=== PATIENT | female | born 1955 | race Caucasian/White ===

== ENCOUNTER 2017-05-12 07:18 | Day surgery (SDC) | payer OTHER ==
[2017-05-09 10:35] VITALS: BMI 22.6
[~2017-05-12 07:18] MED LIST: LACTATED RINGERS 1,000 ML IV SCH
[2017-05-12 07:38] VITALS: RESP 16; TEMP 97.3
[2017-05-12] MEDS ORDERED: LIDOCAINE 1% 20 ML VIAL (10MG/ML) FOR IV START INTRADERMA ONE (07:44)
[2017-05-12] MEDS ORDERED: LIDOCAINE 1% INJ 10MG/ML (20 ML MDV) ONE (08:29)
[2017-05-12] MEDS ORDERED: PROPOFOL 10 MG/ML 20 ML VIAL IV ONE (08:29)
--- NOTE | 2017-05-12 08:46 | P.OP ---
Date of Procedure: 05/12/17 Preoperative Diagnosis: EPigastric pain Postoperative Diagnosis: GERD with peptic ulcer disease Erosive gastritis Hiatal hernia Duodentitis Mild reflux esophagitis Procedure(s) Performed: Implants: Pathology: other Condition: stable Disposition: PACU Indications for Procedure: Operative Findings: Description of Procedure: A timeout was performed to verify the correct patient and correct procedure. Patient was on continuous vitals and pulse ox monitoring throughout the procedure. She was placed in lateral decubitus position and a bite block was inserted. A well-lubricated endoscope was passed orally. The esophagus was intubated without difficulty. The EGD was passed beyond the pylorus into the first and second portion of the duodenum. Patient had mild duodenitis . In the stomach the patient had punctate hemorrhages significant for erosive gastritis. On retroflexion there was a moderate size hiatal hernia Hill grade 2. There was a healed ulcer on the incisura anteriorly. Multiple biopsies taken from the antrum and incisura and body and submitted for pathology as well as H. pylori testing. Scope was withdrawn into the GE junction at 35 cm and biopsied. There was mild reflux esophagitis. Scope was then withdrawn into the esophagus which was also biopsied.Scope Was then removed and procedure completed Patient tolerated the procedure well and was taken to post anesthesia care unit in stable condition. Plan - Discharge Summary New Discharge Prescriptions: No Action Levothyroxine Sodium [Levoxyl] 150 mcg PO DAILY Topiramate [Topamax] 100 mg PO QAM Ergocalciferol [Vitamin D2] 50,000 unit PO Q14D Topiramate [Topiramate] 200 mg PO HS SUMAtriptan SUCCINATE [Sumavel Dosepro] 6 mg SQ DAILY PRN PRN Reason: Migraine Headache SUMAtriptan SUCC/NAPROXEN SOD [Treximet 85-500 mg Tablet] 1 tab PO DAILY PRN PRN Reason: Migraine Headache Butalbit/Acetamin/Caff/Codeine [Butal/APAP/Caff/Cod 53-948-87-30MG] 1 cap PO BID PRN PRN Reason: Migraine Headache Omeprazole [PriLOSEC] 20 mg PO DAILY Sucralfate [Carafate] 1 gm PO BID Discharge Medication List Levothyroxine Sodium [Levoxyl] 150 mcg PO DAILY 04/26/14 [History] Topiramate [Topamax] 100 mg PO QAM 04/26/14 [History] Butalbit/Acetamin/Caff/Codeine [Butal/APAP/Caff/Cod 50-072-51-30MG] 1 cap PO BID PRN 04/29/16 [History] Ergocalciferol [Vitamin D2] 50,000 unit PO Q14D 04/29/16 [History] SUMAtriptan SUCC/NAPROXEN SOD [Treximet 85-500 mg Tablet] 1 tab PO DAILY PRN [History] SUMAtriptan SUCCINATE [Sumavel Dosepro] 6 mg SQ DAILY PRN 04/29/16 [History] Topiramate [Topiramate] 200 mg PO HS 04/29/16 [History] Omeprazole [PriLOSEC] 20 mg PO DAILY 05/09/17 [History] Sucralfate [Carafate] 1 gm PO BID 05/09/17 [History]
[2017-05-12 09:05] VITALS: BP 122/73; PULSE 61
== END 2017-05-12 09:42 | disposition home or self-care (01) ==
LOC: ORWHC2ENDO 07:18
PROVIDERS: ATTEND Surgery
DX: K21.0 Gastro-esophageal reflux disease with esophagitis (principal); K44.9 Diaphragmatic hernia without obstruction or gangrene; K29.80 Duodenitis without bleeding; K29.50 Unspecified chronic gastritis without bleeding; K27.9 Peptic ulcer, site unspecified, unspecified as acute or chronic, without hemorrhage or perforation; E07.9 Disorder of thyroid, unspecified; G43.909 Migraine, unspecified, not intractable, without status migrainosus; Z79.899 Other long term (current) drug therapy; Z88.0 Allergy status to penicillin; Z87.891 Personal history of nicotine dependence
CPT/HCPCS: 43239; J2001; J2704; 88305; 88342

== ENCOUNTER 2018-01-05 07:30 | Inpatient (IN) | payer OTHER ==
[2017-12-29 09:47] VITALS: BMI 23.4
[~2018-01-05 07:30] MED LIST changes: +CLINDAMYCIN 900 MG in DEXTROSE 5% IN WATER 50 ML IVPB ONE; +HEPARIN SODIUM,PORCINE 5,000 UNIT/ML 1 ML VIAL SQ ONE; -LACTATED RINGERS 1,000 ML IV SCH; +MORPHINE SULFATE 4 MG/ML SYRINGE IV PRN; +ONDANSETRON 4 MG/2 ML VIAL IVP PRN; +fentaNYL (PF) 50 MCG/ML 2 ML AMP IV PRN
[2018-01-05] MEDS ORDERED: SCOPOLAMINE 1.5MG/72HR PATCH TRANSDERM STA (11:32)
[2018-01-05] MEDS ORDERED: ACETAMINOPHEN IV (For NPO) 1,000 MG in EMPTY BAG 1 BAG IVPB ONE ×2 (11:32→19:30)
[2018-01-05] MEDS ORDERED: ceFAZolin IN SWFI 2 GM/20 ML SYRINGE IVP ONE (11:32)
--- NOTE | 2018-01-05 11:35 | P.GSHP ---
History of Present Illness H&P Date: 01/05/18 CHIEF COMPLAINT: Paraesophageal hiatal hernia with gastroesophageal reflux disease. HISTORY OF PRESENT ILLNESS: The patient is a 62-year-old female who presents with GERD. She has completed an esophageal manometry including upper endoscopy workup. Now she presents for surgical intervention. PAST MEDICAL HISTORY: Please see list. PAST SURGICAL HISTORY: Please see list. MEDICATIONS: Please see list. ALLERGIES: Please see list. SOCIAL HISTORY: No illicit drug use FAMILY HISTORY: No reports of Crohn disease or ulcerative colitis. REVIEW OF ORGAN SYSTEMS: CONSTITUTIONAL: No reports of fevers or chills. GI: Denies any blood in stools or constipation. PHYSICAL EXAM: VITAL SIGNS: Stable GENERAL: Well-developed pleasant and in no acute distress. HEENT: No scleral icterus. Extraocular movements grossly intact. Moist buccal mucosa. NECK: Supple without lymphadenopathy. CHEST: Unlabored respirations. Equal bilateral excursions. CARDIOVASCULAR: Regular rate and rhythm. Distal 2+ pulses. ABDOMEN: Soft, nondistended. No peritoneal signs. MUSCULOSKELETAL: No clubbing, cyanosis, or edema. ASSESSMENT: 1. Severe gastroesophageal reflux disease. PLAN: 1. Recommend proceeding with a robotic paraesophageal hiatal hernia with possible mesh. 2. Benefits and risks of surgical intervention was discussed including possibility of open technique. 3. Inpatient hospitalization recommended of 2 nights or less. 4. DVT prophylaxis. 5. Antibiotic prophylaxis. 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 History of Any Multi-Drug Resistant Organisms: None Reported Past Surgical History: Breast Surgery, Cholecystectomy, Hysterectomy, Tonsillectomy Additional Past Surgical History / Comment(s): ANKUR mastectomy and reconstruction. Past Anesthesia/Blood Transfusion Reactions: No Reported Reaction Past Psychological History: No Psychological Hx Reported Smoking Status: Former smoker Past Alcohol Use History: None Reported Additional Past Alcohol Use History / Comment(s): QUIT SMOKING 1989, smoked for 15 yrs. Past Drug Use History: None Reported - Past Family History Father Family Medical History: Cancer Additional Family Medical History / Comment(s): LUNG, at 43yrs of age. Mother Family Medical History: Cancer Additional Family Medical History / Comment(s): BREAST x 2 Brother(s) Family Medical History: Cancer Additional Family Medical History / Comment(s): BLADDER Sister(s) Family Medical History: Cancer Additional Family Medical History / Comment(s): CERVICAL , COLON , thyroid, breast Medications and Allergies Home Medications Medication Instructions Recorded Confirmed Type Levothyroxine Sodium [Levoxyl] 150 mcg PO MOTUWETHFRSA 04/26/14 12/29/17 History Topiramate [Topamax] 100 mg PO QAM 04/26/14 12/29/17 History Ergocalciferol [Vitamin D2] 50,000 unit PO Q14D 04/29/16 12/29/17 History Topiramate [Topiramate] 200 mg PO HS 04/29/16 12/29/17 History Butalb/APAP/Caff 50-325-40Mg 2 tab PO DAILY PRN 09/05/17 12/29/17 History [Fioricet 50-325-40] Omeprazole 40 mg PO QAM 09/05/17 12/29/17 History SUMAtriptan SUCC/NAPROXEN SOD 1 each PO DAILY PRN 09/05/17 12/29/17 History [Treximet 85-500 mg Tablet] Allergies Allergy/AdvReac Type Severity Reaction Status Date / Time Penicillins Allergy Unknown Verified 12/29/17 09:05 Childhood
[2018-01-05] MEDS ORDERED: DEXAMETHASONE SOD PHOSPHATE 10 MG/ML 1 ML VIAL IV ONE (13:12)
[2018-01-05] MEDS ORDERED: ONDANSETRON 4 MG/2 ML VIAL IVP ONE (13:12)
[2018-01-05 13:25] LABS: HCT 38.2 % (34.0-46.0); MCH 30.4 pg (25.0-35.0); MCHC 33.9 g/dL (31.0-37.0); MCV 89.6 fL (80.0-100.0); Platelet Count 210 k/uL (150-450); RBC 4.26 m/uL (3.80-5.40); RDW 12.6 % (11.5-15.5); WBC 4.9 k/uL (3.8-10.6)
[2018-01-05] MEDS: LACTATED RINGERS 1,000 ML IV SCH (13:25)
[2018-01-05] MEDS ORDERED: LIDOCAINE 1% 20 ML VIAL (10MG/ML) FOR IV START INTRADERMA ONE (13:26)
[2018-01-05 13:34] LABS: ALT 25 U/L (9-52); AST 18 U/L (14-36); Albumin 4.2 g/dL (3.5-5.0); Alkaline Phosphatase 105 U/L (38-126); Anion Gap 10 mmol/L; Blood Urea Nitrogen 11 mg/dL (7-17); Calcium 9.5 mg/dL (8.4-10.2); Carbon Dioxide 21 mmol/L (22-30); Chloride 110 mmol/L (98-107); Glucose 106 mg/dL (74-99); Potassium 3.9 mmol/L (3.5-5.1); Sodium 141 mmol/L (137-145); Total Bilirubin 0.4 mg/dL (0.2-1.3); Total Protein 7.5 g/dL (6.3-8.2)
[2018-01-05] MEDS ORDERED: fentaNYL (PF) 50 MCG/ML 2 ML AMP ONE (13:52)
[2018-01-05] MEDS ORDERED: GLYCOPYRROLATE 0.2 MG/ML 2 ML VIAL ONE (13:52)
[2018-01-05] MEDS ORDERED: ePHEDrine SULFATE/0.9% NACL/PF 50 MG/5 ML SYRINGE IV ONE (13:52)
[2018-01-05] MEDS ORDERED: HYDROmorphone (PF) 1 MG/ML ONE (13:52)
[2018-01-05] MEDS ORDERED: SUCCINYLCHOLINE CHLORIDE 100 MG/5 ML SYR IV ONE (13:52)
[2018-01-05] MEDS ORDERED: NEOSTIGMINE 1 MG/ML 10 ML VIAL ONE (13:52)
[2018-01-05] MEDS ORDERED: LIDOCAINE 1% INJ 10MG/ML (20 ML MDV) ONE (13:52)
[2018-01-05] MEDS ORDERED: ROCURONIUM BROMIDE 10 MG/ML 10 ML VIAL IV ONE (13:52)
[2018-01-05] MEDS ORDERED: MIDAZOLAM 2 MG/2 ML VIAL ONE (13:52)
[2018-01-05] MEDS ORDERED: PHENYLEPHRINE-0.9% NACL SYG 1 MG/10 ML SYRINGE ONE (13:52)
[2018-01-05] MEDS ORDERED: PROPOFOL 10 MG/ML 20 ML VIAL IV ONE (13:52)
[2018-01-05] MEDS ORDERED: BUPIVACAINE (PF) 0.25% 30 ML VIAL SQ ONE (14:25)
[2018-01-05] MEDS ORDERED: LACTATED RINGERS 1,000 ML IV ONE ×2 (14:49→16:00)
[2018-01-05 17:16] VITALS: RESP 16
[2018-01-05] MEDS ORDERED: HYDROcodone/APAP 15 ML SOLUTION PO PRN (17:41)
[2018-01-05] MEDS ORDERED: NALOXONE 0.4 MG/ML 1 ML VIAL IV PRN (17:41)
[2018-01-05] MEDS ORDERED: ONDANSETRON 4 MG/2 ML VIAL IVP PRN (17:41)
--- NOTE | 2018-01-05 17:41 | P.OP ---
Date of Procedure: 01/05/18 Description of Procedure: DESCRIPTION OF PROCEDURE(S): SURGEON: GYPSY MCKEON MD COMMISSIONED POLICE OFFICER: 1. Kari Ornelas PREOPERATIVE DIAGNOSES: 1. Gastroesophageal reflux disease. 2. Paraesophageal hiatal hernia, midline. 3. Epigastric abdominal pain. 4. History of breast cancer. 5. Migraines. 6. History of gastric ulcers. 7. Hypothyroidism. POSTOPERATIVE DIAGNOSES: 1. Gastroesophageal reflux disease. 2. Paraesophageal hiatal hernia, midline, incarcerated, 7 x 3 cm 3. Epigastric abdominal pain. 4. History of breast cancer. 5. Migraines. 6. History of gastric ulcers. 7. Hypothyroidism. 8. Gastric ulcers. OPERATION: 1. Robotic-assisted da Anthony Xi laparoscopic reduction and repair of incarcerated paraesophageal hiatal hernia, 7 x 3 cm, with [place] Biopatch A 8 x 8 cm. 2. Intraoperative esophagogastroduodenoscopy ANESTHESIA: General with local anesthetic. ESTIMATED BLOOD LOSS: 40 mL SPECIMENS REMOVED: None. COMPLICATIONS: None. FINDINGS: 1. Paraesophageal hiatal hernia with defect along the anterior hiatus. 2. Port placed 12 cm distal. 3. Incarcerated upper pole of the stomach within the mediastinum with moderate dissection performed with resection of mediastinal hernia sac. 4. 7 cm paraesophageal incarcerated diaphragmatic hiatal hernia with moderate dissection into the mediastinum. 5. [place] Biopatch A onlay mesh placed. INDICATIONS: The patient is a 62-year-old fmale who presents with regurgitation, gastroesophageal reflux and a symptomatic diaphragmatic hiatal hernia. Preoperative workup including upper endoscopy demonstrated a Hill grade 4 lower esophageal valve. She completed an esophageal manometry. Given the severity of her symptoms, she had elected for surgical intervention. Benefits and risks including bleeding, infection, recurrence, dysphagia, injury to the lung, need for further surgery was described at length. Informed consent was obtained. DESCRIPTION: The patient was brought into the operating room and placed in supine position. Preoperatively she had received heparin subcutaneously for DVT prophylaxis. After general induction, the abdomen was prepped and draped in standard sterile fashion. Ioban draping was placed along the abdomen. A timeout protocol was confirmed with the surgical team, for which the patient's name, procedure to be performed including DVT prophylaxis with bilateral SCDs, and preoperative antibiotics were also confirmed. A robotic da Anthony Xi system was prepped and primed. At 12 cm from the xiphoid to just below the umbilicus, proposed port sites were marked with indelible marker along the left axillary line, left mid-clavicular line with each ports were marked 10 cm from each other. A 5 mm 0 degrees laparoscopic trocar entry was performed along the left upper quadrant. The abdomen was insufflated to 15 mmHg pressure she tolerated well. Diagnostic laparoscopy demonstrated no injury to bowel, viscera, or mesentery. The gallbladder was unremarkable. The liver surface was unremarkable. No injury had occurred to the small bowel or viscera. Along the hiatus, a defect was found anteriorly. Next, one 8 mm robotic port was placed along the right upper abdomen. An 8-mm port was were placed along the left lateral abdominal wall. The camera 8-mm port was maintained along the epigastrium via the hernia defect. Another 12 mm port was placed along the left upper abdominal wall after exchanging the 5 mm port. Please note that the ports were placed at least 20 cm away from the target anatomy. Care was taken to check that each robotic arm were safely away from collision with the bed or the patient. At the epigastrium, a median sized Shaka liver retractor was placed under direct visualization with the Iron Assistant Nurse Manager placed under the right shoulder of the patient. The patient was repositioned in reverse Trendelenburg position at 14-degrees after lowering the bed. The robot was docked above the left side of the patient. Using a grasper for arm 3, a grasper for arm 1, including vessel sealer for arm 2, the robotic system was docked and primed as described. Instruments were interchanged by the habilitation assistant. I had sat at the console. The gastrohepatic ligament was cleaved using a vessel sealer. Next, the phrenoesophageal ligament was mobilized and the distal esophagus was mobilized circumferentially. An incarcerated hernia with a large lipoma was found along the mediastinum. As a result, deep dissection well into the mediastinum was needed to free the entire esophagus. The left and right crura was identified. A moderate sized midline large hiatal hernia and sac was found incarcerated into the mediastinum. Significant mobilization of the distal to mid esophagus into the mediastinum was performed. Circumferentially, the hernia sac was excised and brought into the peritoneal cavity. Care was taken to avoid any gastrotomy to the incarcerated upper pole of the stomach. Extended dissection occurred for at least another 1 hour as the stomach was densely adherent to the left diaphragm. The measured defect was consistent with 7 cm axial length and 3 cm in width. After extensive dissection, the distal esophagus at least 3 cm was brought into the abdominal cavity. Once the hiatus and crura was dissected, 2-0 VLOC suture was placed as a running suture to re-approximate the diaphragmatic hiatus posteriorly. To buttress the repair, a [place] Biopatch A was prepared along the back table and cut in a mcmahan-hole fashion as to reinforce the repair as an underlay. The mesh cut in half and placed along the crural repair and tagged using horizontal mattress sutures using 2-0 VLOC. I went to the head of the bed to perform intraoperative esophagogastroduodenoscopy. Initial attempt of placing a bougie was performed however severe angulation of the posterior oropharynx prevented placement of the bougie. I went to the head of the bed to perform intraoperative esophagogastroduodenoscopy. An Olympus gastroscope was passed through posterior oropharynx, where the GE junction was found distal to the diaphragmatic hiatus. The intra-abdominal esophageal length obtained during the case was over 2 cm. The stomach was entered. Multiple superficial gastric ulcers were identified along the upper pole stomach. The duodenum was unremarkable. Retroflexion of the scope confirmed a Hill grade 1 lower esophageal valve. The stomach had been desufflated. No evidence of leaks were found either of the mucosal defects of the esophagus or stomach. This concluded the endoscopic portion of the case. The robot was undocked from the patient. I re-scrubbed into the case. All instruments and pneumoperitoneum were evacuated from the abdominal cavity. Incisions were reapproximated using 4-0 Monocryl in an interrupted subcuticular fashion. The 12-mm port site fascial defect was less than 8 mm in size. Dermabond was applied to the skin. Optifoam dressing was placed along the skin. Local anesthetic was infiltrated in all wounds for postop analgesia. Multiple intra-abdominal films were obtained. At the end of the procedure, needle, sponge, and instrument count was verified correct by the atm technician. The patient had tolerated the procedure well and was taken to the postanesthesia unit in stable condition. Intraoperative films were reviewed with the patient's family who were pleased with the level of care.
[2018-01-05] MEDS ORDERED: MORPHINE SULFATE 4 MG/ML SYRINGE IVP PRN (17:45)
[2018-01-05] MEDS: 0.9% NACL WITH KCL 20 MEQ/L 1,000 ML IV SCH (19:23)
[2018-01-05] MEDS: AMPICILLIN-SULBACTAM 3 GM in SODIUM CHLORIDE 0.9% 100 ML IVPB SCH (20:26)
[2018-01-05] MEDS: SIMETHICONE 40 MG/0.6 ML DROPS 2,000 MG/30 ML BOTTLE PO SCH (20:27)
[2018-01-05] MEDS: HYOSCYAMINE ORAL DROPS 1.875 MG/15 ML BOTTLE PO SCH (20:31)
[2018-01-05] MEDS ORDERED: TOPIRAMATE 100 MG TAB PO SCH (21:00)
[2018-01-06] MEDS: SIMETHICONE 40 MG/0.6 ML DROPS 2,000 MG/30 ML BOTTLE PO SCH ×3 (00:21→11:47)
[2018-01-06] MEDS: HYOSCYAMINE ORAL DROPS 1.875 MG/15 ML BOTTLE PO SCH ×3 (00:21→11:48)
[2018-01-06] MEDS: 0.9% NACL WITH KCL 20 MEQ/L 1,000 ML IV SCH ×2 (02:47→09:32)
[2018-01-06] MEDS: AMPICILLIN-SULBACTAM 3 GM in SODIUM CHLORIDE 0.9% 100 ML IVPB SCH (02:51)
[2018-01-06] MEDS: LACTATED RINGERS 1,000 ML IV SCH (03:05)
[2018-01-06] MEDS ORDERED: LEVOTHYROXINE 75 MCG TAB PO SCH (06:30)
[2018-01-06 07:10] LABS: Basophils % (A) 0 %; Eosinophils % (A) 0 %; HCT 34.8 % (34.0-46.0); HGB 11.5 gm/dL (11.4-16.0); Lymphocytes # (A) 0.8 k/uL (1.0-4.8); Lymphocytes % (A) 15 %; MCH 30.1 pg (25.0-35.0); MCHC 33.1 g/dL (31.0-37.0); Mean Platelet Volume 7.7; Monocytes # (A) 0.3 k/uL (0-1.0); Monocytes % (A) 5 %; Neutrophils # (A) 4.5 k/uL (1.3-7.7); Neutrophils % (A) 79 %; Platelet Count 179 k/uL (150-450); RBC 3.83 m/uL (3.80-5.40); RDW 12.5 % (11.5-15.5); WBC 5.6 k/uL (3.8-10.6)
[2018-01-06 07:37] LABS: Anion Gap 9 mmol/L; Blood Urea Nitrogen 8 mg/dL (7-17); Calcium 8.8 mg/dL (8.4-10.2); Carbon Dioxide 21 mmol/L (22-30); Chloride 111 mmol/L (98-107); Phosphorus 3.3 mg/dL (2.5-4.5); Sodium 141 mmol/L (137-145)
[2018-01-06] MEDS ORDERED: 0.9% NACL WITH KCL 20 MEQ/L 1,000 ML IV SCH (08:00)
[2018-01-06 08:05] VITALS: BP 114/69; PULSE 71; TEMP 98.3
--- NOTE | 2018-01-06 08:54 | FL ---
EXAMINATION TYPE: FL UGI DATE OF EXAM: 01/06/2018 LIMITED UGI-ESOPHAGRAM: CLINICAL HISTORY: Gastroesophageal reflux with Owen fundoplication surgical correction one day ear lier TECHNIQUE: Limited esophagram is performed utilizing 25 oz of Omnipaque 350. A total of 13 seconds o f fluoroscopic time was utilized during procedure. 8 spot images are saved during procedure to PACS s tation. FINDINGS: The patient swallowed contrast without difficulty or delay. Esophageal peristalsis and mo tility are within normal limits. There is good flow of contrast along the diaphragmatic hiatus into t he stomach, there is no evidence of contrast extravasation to suggest leak. No persistent hiatal manuel ia is seen. Patient remains asymptomatic. Cholecystectomy clips are incidentally noted. IMPRESSION: No evidence of leak or significant obstruction status post Owen fundoplication surgery yesterday.
[2018-01-06] MEDS ORDERED: BUTALB/APAP/CAFF 50-325-40MG TAB PO PRN (08:59)
[2018-01-06] MEDS ORDERED: PANTOPRAZOLE 40 MG/10 ML VIAL IV SCH (09:00)
[2018-01-06] MEDS ORDERED: ENOXAPARIN 40 MG/0.4 ML SYRINGE SQ SCH (09:00)
[2018-01-06] MEDS ORDERED: TOPIRAMATE 100 MG TAB PO SCH (09:00)
--- NOTE | 2018-01-06 09:40 | P.PN ---
<Shirlene Mccartneybee Padilla - Last Filed: 01/06/18 09:34> Subjective Progress Note Date: 01/06/18 62-year-old female seen and examined at bedside. Chief complaint this morning is headache. Patient states she gets migraine headaches at home and takes Fioricet is requesting Fioricet. Patient states passing gas no stool. Has been up to the bathroom ambulating reports no nausea vomiting reports tolerating diet Temp is 98.3 heart rate in the 80s on room air sats are 92%. Electrolyte within normal limits Patient is postop robotic-assisted laparoscopic reduction and repair incarcerated. para Esophageal hernia with mesh done on January 05 Objective - Vital Signs Vital signs: Vital Signs Temp 98.3 F 01/06/18 08:04 Pulse 71 01/06/18 08:04 Resp 16 01/06/18 08:04 BP 114/69 01/06/18 08:04 Pulse Ox 92 L 01/06/18 08:04 Intake & Output 01/05/18 01/06/18 01/06/18 18:59 06:59 18:59 Intake Total 2950 650 Output Total 210 2000 280 Balance 2740 -1350 -280 Intake: IV 2950 Intake, IV Titration 650 Amount 0.9% NaCl with KCl 20 Meq 450 /l 1,000 ml @ 150 mls/hr IV .Q6H40M LAUREN Rx#: [id number] ACETAMINOPHEN IV (For NPO 100 ) 1,000 mg In Empty Bag 1 bag @ 400 mls/hr IVPB ONCE ONE Rx#:[id number] Ampicillin-Sulbactam 3 gm 100 In Sodium Chloride 0.9% 100 ml @ 100 mls/hr IVPB Q6H [facility] Rx#:[id number] Oral 0 Output: Urine 170 2000 280 Uretheral (Saldana) 280 Estimated Blood Loss 40 Other: Voiding Method Indwelling Catheter - Exam Physical exam Pleasant 62-year-old female sitting up in bed appears in no acute distress talkative oriented 3 Lungs adequate air movement bilaterally on room air no cough Heart S1-S2 audible regular denying chest pain Abdomen surgical incision site dressings dry passing gas no stool indwelling Saldana catheter in place tolerating clear diet no nausea no vomiting surgical tenderness appropriate nondistended. Hypoactive bowel tones noted Extremities Venodyne's on bilateral lower extremities - Labs CBC & Chem 7: 01/06/18 06:44 01/06/18 06:44 Labs: Abnormal Lab Results - Last 24 Hours (Table) 01/05/18 01/06/18 01/06/18 Range/Units 13:14 06:44 06:44 Lymphocytes # 0.8 L (1.0-4.8) k/uL Chloride 110 H 111 H (98-107) mmol/L Carbon Dioxide 21 L 21 L (22-30) mmol/L Glucose 106 H (74-99) mg/dL Assessment and Plan Assessment: Impression Gastroesophageal reflux disease Paresophageal hiatal hernia History of migraines Epigastric abdominal pain History of gastric ulcers Robotic-assisted da Anthony Xi laparoscopic reduction and repair of incarcerated paraesophageal hiatal hernia, 7 x 3 cm, with [place] Biopatch A 8 x 8 cm. done January 05 . Intraoperative esophagogastroduodenoscopy Plan Anticipate discharge today Remove the indwelling Saldana catheter now Resume home meds as appropriate DVT and GI prophylaxis Further recommendations pending The above impression and plan of care have been discussed and directed by signing physician. Caity Mccartney nurse practitioner acting as scribe for signing physician. <Ellie Fenton N - Last Filed: 01/06/18 15:20> Objective - Vital Signs Vital signs: Vital Signs Temp 98.3 F 01/06/18 08:04 Pulse 71 01/06/18 08:04 Resp 16 01/06/18 08:04 BP 114/69 01/06/18 08:04 Pulse Ox 92 L 01/06/18 08:04 Intake & Output 01/05/18 01/06/18 01/06/18 18:59 06:59 18:59 Intake Total 2950 650 1000 Output Total 210 2000 500 Balance 2740 -1350 500 Weight 72.121 kg Intake: IV 2950 800 0.9% NaCl with KCl 20 Meq 800 /l 1,000 ml @ 100 mls/hr IV .Q10H LAUREN Rx#: [id number] Intake, IV Titration 650 Amount 0.9% NaCl with KCl 20 Meq 450 /l 1,000 ml @ 150 mls/hr IV .Q6H40M LAUREN Rx#: [id number] ACETAMINOPHEN IV (For NPO 100 ) 1,000 mg In Empty Bag 1 bag @ 400 mls/hr IVPB ONCE ONE Rx#:[id number] Ampicillin-Sulbactam 3 gm 100 In Sodium Chloride 0.9% 100 ml @ 100 mls/hr IVPB Q6H [facility] Rx#:[id number] Oral 0 200 Output: Urine 170 2000 500 Uretheral (Saldana) 280 Estimated Blood Loss 40 Other: Voiding Method Indwelling Catheter Indwelling Catheter # Voids 1 - Labs CBC & Chem 7: 01/06/18 06:44 01/06/18 06:44 Labs: Abnormal Lab Results - Last 24 Hours (Table) 01/06/18 01/06/18 Range/Units 06:44 06:44 Lymphocytes # 0.8 L (1.0-4.8) k/uL Chloride 111 H (98-107) mmol/L Carbon Dioxide 21 L (22-30) mmol/L
--- NOTE | 2018-01-06 12:12 | P.DS ---
Providers Date of admission: 01/05/18 12:46 Expected date of discharge: 01/06/18 Attending physician: Ellie Fenton Primary care physician: Stated None Hospital Course: 62-year-old female presented to undergo an elective surgery for treatment of regurgitation esophageal reflex and symptomatic diaphragmatic hiatus hernia. Patient did have perioperative workup including an upper endoscopic which showed grade for 4 lower esophageal valve had completed an esophageal manometry including upper endoscopy workup. Now she presents for surgical intervention. PAST MEDICAL HISTORY: Please see list. Procedure was done on January 05 Robotic-assisted da Anthony Xi laparoscopic reduction and repair of incarcerated paraesophageal hiatal hernia, 7 x 3 cm, with [place] Biopatch A 8 x 8 cm. Intraoperative esophagogastroduodenoscopy there were no postop events. Day of discharge patient is tolerating prescribed diet no nausea no vomiting passing gas and had a bowel movement surgical incision sites dressings were dry Discharge diagnosis Gastroesophageal reflux disease Paresophageal hiatal hernia History of migraines Epigastric abdominal pain History of gastric ulcers Robotic-assisted da Anthony Xi laparoscopic reduction and repair of incarcerated paraesophageal hiatal hernia, 7 x 3 cm, with [place] Biopatch A 8 x 8 cm. done 01/05 / Intraoperative esophagogastroduodenoscopy The above impression and plan of care have been discussed and directed by signing physician. Caity Mccartney nurse practitioner acting as scribe for signing physician. Plan - Discharge Summary Discharge Rx Participant: Yes New Discharge Prescriptions: New Bisacodyl [Dulcolax] 5 mg PO DAILY PRN #10 tablet.dr PRN Reason: Constipation Ondansetron Odt [Zofran Odt] 4 mg PO Q8HR PRN #9 tab PRN Reason: Nausea Simethicone 40 mg/0.6 ml Drops [Mylicon Drops] 40 mg PO PCHS PRN #30 ml PRN Reason: Gas HYDROcodone/APAP [[place] Elixir 7.5-325Mg/15Ml] 15 ml PO Q4HR PRN #300 ml PRN Reason: Pain Continue Levothyroxine Sodium [Levoxyl] 150 mcg PO MOTUWETHFRSA Topiramate [Topamax] 100 mg PO QAM Ergocalciferol [Vitamin D2 (DRISDOL)] 50,000 unit PO Q14D Topiramate 200 mg PO HS Omeprazole 40 mg PO QAM Butalb/APAP/Caff 50-325-40Mg [Fioricet 50-325-40] 2 tab PO DAILY PRN PRN Reason: migraines Discontinued SUMAtriptan SUCC/NAPROXEN SOD [Treximet 85-500 mg Tablet] 1 tab PO DAILY PRN PRN Reason: migraines Discharge Medication List Levothyroxine Sodium [Levoxyl] 150 mcg PO MOTUWETHFRSA 04/26/14 [History] Topiramate [Topamax] 100 mg PO QAM 04/26/14 [History] Ergocalciferol [Vitamin D2 (DRISDOL)] 50,000 unit PO Q14D 04/29/16 [History] Topiramate 200 mg PO HS 04/29/16 [History] Butalb/APAP/Caff 50-325-40Mg [Fioricet 50-325-40] 2 tab PO DAILY PRN 09/05/17 [ History] Omeprazole 40 mg PO QAM 09/05/17 [History] Bisacodyl [Dulcolax] 5 mg PO DAILY PRN #10 tablet.dr 01/06/18 [Rx] HYDROcodone/APAP [[place] Elixir 7.5-325Mg/15Ml] 15 ml PO Q4HR PRN #300 ml [Rx] Ondansetron Odt [Zofran Odt] 4 mg PO Q8HR PRN #9 tab 01/06/18 [Rx] Simethicone 40 mg/0.6 ml Drops [Mylicon Drops] 40 mg PO PCHS PRN #30 ml [Rx] Follow up Appointment(s)/Referral(s): Ellie Fenton MD [STAFF PHYSICIAN] - 01/17/18 6:45 pm Patient Instructions/Handouts: Laparoscopic Hiatal Hernia Repair (DC) Activity/Diet/Wound Care/Special Instructions: No lifting over 4 pounds in 4 weeks. No bath tub soaks. May shower. Remove dressing on Tuesday. Liquid diet only. Protein shakes 3 times daily at least 20-30 g each. Discharge Disposition: HOME SELF-CARE
== END 2018-01-06 13:45 | disposition home or self-care (01) | DRG 328 ==
LOC: 2ORMAIN 12:46 → 3SUR 16:53
PROVIDERS: ADMIT Surgery Plastic and Reconstructive Surgery; ATTEND Surgery Plastic and Reconstructive Surgery
PROC: 8E0W4CZ Robotic Assisted Procedure of Trunk Region, Percutaneous Endoscopic Approach (ICD-10-PCS; 2018-01-05)
PROC: 0DJ08ZZ Inspection of Upper Intestinal Tract, Via Natural or Artificial Opening Endoscopic (ICD-10-PCS; 2018-01-05)
PROC: 0BUT4JZ Supplement Diaphragm with Synthetic Substitute, Percutaneous Endoscopic Approach (ICD-10-PCS; principal; 2018-01-05 14:00)
DX: K44.0 Diaphragmatic hernia with obstruction, without gangrene (principal); D17.4 Benign lipomatous neoplasm of intrathoracic organs; E03.9 Hypothyroidism, unspecified; K21.9 Gastro-esophageal reflux disease without esophagitis; K25.9 Gastric ulcer, unspecified as acute or chronic, without hemorrhage or perforation; G43.909 Migraine, unspecified, not intractable, without status migrainosus; Z79.899 Other long term (current) drug therapy; Z85.3 Personal history of malignant neoplasm of breast; Z85.42 Personal history of malignant neoplasm of other parts of uterus; Z87.891 Personal history of nicotine dependence; Z90.13 Acquired absence of bilateral breasts and nipples; Z90.710 Acquired absence of both cervix and uterus; Z90.49 Acquired absence of other specified parts of digestive tract; Z88.0 Allergy status to penicillin
CPT/HCPCS: 36415; 74240; 80051; 80053; 82310; 82565; 83735; 84100; 84520; 85025; 85027; 86850; 86900; 86901

== ENCOUNTER → 2019-03-19 | Outpatient (CLI) | payer OTHER ==
[2019-03-19 16:17] LABS: T4, Free (Free Thyroxine) 1.5 ng/dL (0.80-1.80)
== END | disposition home or self-care (01) ==
LOC: LABWHC1 09:23
PROVIDERS: ATTEND Internal Medicine
DX: E55.9 Vitamin D deficiency, unspecified (principal); E03.9 Hypothyroidism, unspecified
CPT/HCPCS: 36415; 82306; 84439; 84443

== ENCOUNTER → 2023-07-04 | Outpatient (CLI) | payer MEDICARE, OTHER ==
--- NOTE | 2023-07-04 10:16 | XR ---
EXAMINATION TYPE: XR ribs LT w pa chest xray DATE OF EXAM: 07/04/2023 COMPARISON: NONE HISTORY: Pain TECHNIQUE: Single view of the chest 4 views of the ribs are submitted. FINDINGS: The lungs are clear. No Evidence for pneumothorax. No evidence for focal contusion. Medi astinal structures are midline. Evaluation of the ribs fails to demonstrate evidence for displaced r ib fracture or secondary sign of rib fracture. IMPRESSION: Negative study
== END | disposition home or self-care (01) ==
LOC: RADXRMAIN 09:55
PROVIDERS: ATTEND Family Medicine
DX: R07.81 Pleurodynia (principal)